=== PATIENT | female | born 1985 ===

== ENCOUNTER 2020-07-13 14:01 | Emergency (ER) | payer SELFPAY ==
[~2020-07-13] VITALS: Ht 162.6 cm; Wt 90.9 kg
[2020-07-13 14:12] VITALS: Ht 162.6 cm; Wt 90.9 kg
[2020-07-13 15:39] LABS: BILIRUBIN NEGATIVE (NEGATIVE); KETONE NEGATIVE (NEGATIVE); NITRITE POSITIVE (NEGATIVE); UROBILINOGEN NORMAL mg/dL (< 2)
[2020-07-13 15:43] LABS: WHITE CELLS - URINE 25-50 HPF (0-4)
[2020-07-13 15:44] LABS: BACTERIA MANY HPF (NONE SEEN)
[2020-07-13 16:04] LABS: BASOPHILS 0.2 % (0-2); EOSINOPHILS 0.6 % (0-7); HEMOGLOBIN 13.6 g/dL (12-16); IMMATURE GRANULOCYTES 0.5 % (0-5); LYMPHOCYTES 10.7 % (15-50); MCHC 32.4 g/dL (31.0-37.0); MCV 86.6 fL (80.0-100.0); MEAN PLATELET VOLUME 9.5 fL (7.4-10.4); MONOCYTES 5.5 % (2-11); NEUTROPHILS 82.5 % (40-80); PLATELET COUNT 399 10x3/uL (130-400); RBC 4.85 10x6/uL (4.00-5.40); RDW 12.5 % (11.5-14.5); WBC 16.5 10x3/uL (4.8-10.8)
[2020-07-13 16:19] LABS: ANION GAP 13.6 mmol/L (8-16); CALCIUM 8.9 mg/dL (8.5-10.1); CARBON DIOXIDE 27.4 mmol/L (21.0-32.0); CREATININE - SERUM 1.2 mg/dL (0.6-1.3)
[2020-07-13 16:24] LABS: ALBUMIN 3.6 g/dL (3.4-5.0); BILIRUBIN - TOTAL 0.38 mg/dL (0.2-1.3); PROTEIN - SERUM 7.8 g/dL (6.4-8.2)
[2020-07-13 16:59] LABS: HCG URINE NEGATIVE (NEGATIVE)
[2020-07-13] MEDS ORDERED: FLOMAX0.4 MG PO (17:22)
[2020-07-13] MEDS ORDERED: VOLTAREN75 MG PO (17:22)
[2020-07-13] MEDS ORDERED: LEVOFLOXACIN500 MG PO (17:22)
[2020-07-13] MEDS ORDERED: ZOFRAN ODT4 MG/UDTAB PO (17:22)
[2020-07-13 18:41] VITALS: BP 113/45
== END 2020-07-13 18:43 | disposition home or self-care (01) ==
LOC: D.ER 14:01
PROVIDERS: Emergency Medicine
DX: N13.30 Unspecified hydronephrosis (principal); D72.829 Elevated white blood cell count, unspecified; N39.0 Urinary tract infection, site not specified; R94.4 Abnormal results of kidney function studies; R11.2 Nausea with vomiting, unspecified; R10.9 Unspecified abdominal pain